=== PATIENT | female | born 1965 | race Caucasian/White ===

== ENCOUNTER → 2020-03-03 17:40 | Outpatient (CLI) | payer OTHER, SELFPAY ==
[2020-03-03 19:34] LABS: Alanine Aminotransferase 35 U/L (12-78); Albumin Level 4.1 g/dl (3.5-5.0); Albumin/Globulin Ratio 1.4 (1.1-1.8); Alkaline Phosphatase 92 U/L (38-126); Anion Gap 17.9 mEq/L (5-15); Aspartate Amino Transferase 33 U/L (14-36); Bilirubin,Total 0.6 mg/dl (0.2-1.3); Blood Urea Nitrogen 15 mg/dl (7-17); Calcium 8.8 mg/dl (8.4-10.2); Carbon Dioxide 26 mmol/L (22.0-30.0); Chloride 95 mmol/L (98-107); Estimated Glomerular Filt Rate 231 ml/min (>60); GFR (African American) 279 ML/MIN (>60); Glucose 296 mg/dl (74-100); Potassium 3.9 mmoL/L (3.5-5.1); Sodium 135 mmol/L (136-145); Total Protein,Serum 7.1 g/dl (6.3-8.2)
== END ==
PROVIDERS: Visit Provider Family Medicine
DX: I10 Essential (primary) hypertension (principal)
CPT/HCPCS: 80053

== ENCOUNTER → 2023-02-02 09:04 | Outpatient (CLI) | payer BC, SELFPAY ==
[2023-02-02 19:22] LABS: Basophils % 0.7 % (0.1-2.0); Eosinophils # 0.3 K/mm3 (0.0-0.4); Eosinophils % 5.3 % (0.1-12.0); Hematocrit 41.9 % (37.0-47.0); Hemoglobin 13.3 g/dL (12.2-16.2); Lymphocytes # 1.8 K/mm3 (0.7-4.5); Lymphocytes % 34.9 % (10-50); Mean Corpuscular HGB Conc 31.9 g/dL (31.8-35.4); Mean Corpuscular Hemoglobin 27.2 pg (27.0-31.2); Mean Corpuscular Volume 85.5 fl (81-99); Mean Platelet Volume 10.6 fl (7.4-10.4); Monocytes # 0.3 K/mm3 (0.1-1.0); Monocytes % 5.9 % (1.7-9.3); Neutrophils # 2.7 K/mm3 (1.8-7.8); Neutrophils % 53.2 % (37.0-80.0); Platelet Count 187 K/mm3 (142-424); Red Cell Distribution Width 14.4 % (11.5-17.5); White Blood Count 5.2 K/mm3 (4.8-10.8)
[2023-02-02 19:26] LABS: Alanine Aminotransferase 31 U/L (12-78); Albumin Level 3.9 g/dl (3.5-5.0); Albumin/Globulin Ratio 1.4 (1.1-1.8); Alkaline Phosphatase 65 U/L (38-126); Anion Gap 10.8 mEq/L (5-15); Aspartate Amino Transferase 36 U/L (14-36); Bilirubin,Total 0.4 mg/dl (0.2-1.3); Blood Urea Nitrogen 17 mg/dl (7-17); Calcium 8.7 mg/dl (8.4-10.2); Carbon Dioxide 31 mmol/L (22.0-30.0); Chloride 103 mmol/L (98-107); Cholesterol 143 mg/dl (140-200); Estimated Glomerular Filt Rate 127 ml/min (>60); GFR (African American) 153 ML/MIN (>60); Globulin 2.8 g/dL (1.3-3.2); Glucose 92 mg/dl (74-100); HDL Cholesterol 47 mg/dl (40-60); Potassium 3.8 mmoL/L (3.5-5.1); Sodium 141 mmol/L (136-145); Total Protein,Serum 6.7 g/dl (6.3-8.2); Triglycerides 140 mg/dl (30-150); VLDL Cholesterol 28 mg/dL (0-40)
[2023-02-02 19:37] LABS: Direct LDL Cholesterol 65.81 mg/dL (100-129)
[2023-02-02 19:44] LABS: Hemoglobin A1C 6.1 % (4.0-6.0)
== END ==
PROVIDERS: PCP Family Medicine; Visit Provider Family Medicine
DX: Z00.00 Encounter for general adult medical examination without abnormal findings (principal); E03.8 Other specified hypothyroidism; E11.9 Type 2 diabetes mellitus without complications; E66.9 Obesity, unspecified; Z68.41 Body mass index [BMI] 40.0-44.9, adult; Z79.84 Long term (current) use of oral hypoglycemic drugs; Z79.899 Other long term (current) drug therapy
CPT/HCPCS: 80053; 80061; 83036; 84443; 85025

== ENCOUNTER 2024-02-15 13:43 | Outpatient (CLI) | payer BC, SELFPAY ==
[2024-02-15 18:54] LABS: Basophils # 0.1 K/mm3 (0-0.2); Basophils % 1.2 % (0.1-2.0); Eosinophils # 0.2 K/mm3 (0.0-0.4); Eosinophils % 3.9 % (0.1-12.0); Hematocrit 44.1 % (37.0-47.0); Hemoglobin 14.4 g/dL (12.2-16.2); Lymphocytes # 1.5 K/mm3 (0.7-4.5); Lymphocytes % 30.8 % (10-50); Mean Corpuscular HGB Conc 32.7 g/dL (31.8-35.4); Mean Corpuscular Hemoglobin 29.7 pg (27.0-31.2); Mean Corpuscular Volume 90.8 fl (81-99); Monocytes # 0.3 K/mm3 (0.1-1.0); Monocytes % 6.2 % (1.7-9.3); Neutrophils # 2.8 K/mm3 (1.8-7.8); Platelet Count 196 K/mm3 (142-424); Red Blood Count 4.86 M/mm3 (4.20-5.40); Red Cell Distribution Width 14.3 % (11.5-17.5); White Blood Count 4.8 K/mm3 (4.8-10.8)
[2024-02-15 19:12] LABS: Alanine Aminotransferase 28 U/L (12-78); Albumin Level 3.8 g/dl (3.5-5.0); Albumin/Globulin Ratio 1.4 (1.1-1.8); Alkaline Phosphatase 54 U/L (38-126); Anion Gap 8.9 mEq/L (5-15); Aspartate Amino Transferase 32 U/L (14-36); Bilirubin,Total 0.6 mg/dl (0.2-1.3); Blood Urea Nitrogen 20 mg/dl (7-17); Calcium 9.5 mg/dl (8.4-10.2); Carbon Dioxide 30 mmol/L (22.0-30.0); Chloride 104 mmol/L (98-107); Chol/HDL Ratio 4.9 (1-3.5); Cholesterol 183 mg/dl (140-200); Estimated Glomerular Filt Rate 126 ml/min (>60); GFR (African American) 153 ML/MIN (>60); Globulin 2.8 g/dL (1.3-3.2); Glucose 82 mg/dl (74-100); HDL Cholesterol 37 mg/dl (40-60); Potassium 3.9 mmoL/L (3.5-5.1); Sodium 139 mmol/L (136-145); Total Protein,Serum 6.6 g/dl (6.3-8.2); Triglycerides 213 mg/dl (30-150); VLDL Cholesterol 43 mg/dL (0-40)
[2024-02-15 19:22] LABS: Direct LDL Cholesterol 84.69 mg/dL (100-129)
[2024-02-15 19:44] LABS: Thyroid Stimulating Hormone 0.85 uIU/mL (0.465-4.68)
[2024-02-15 20:01] LABS: Hemoglobin A1C 5.5 % (4.0-6.0)
== END 2024-02-15 23:59 | disposition home or self-care (01) ==
LOC: LAB.DROPOF 02-16 13:44
PROVIDERS: PCP Family Medicine; Visit Provider Family Medicine
DX: E11.9 Type 2 diabetes mellitus without complications (principal)
CPT/HCPCS: 80050; 80053; 80061; 83036; 84443; 85025

== ENCOUNTER 2025-02-24 10:00 | Outpatient (CLI) | payer BC, SELFPAY ==
[2025-02-24 16:06] LABS: Albumin Level 3.6 g/dl (3.5-5.0); Chloride 98 mmol/L (98-107); Sodium 136 mmol/L (136-145)
[2025-02-24 16:07] LABS: Potassium 3.5 mmoL/L (3.5-5.1)
[2025-02-24 16:09] LABS: Alanine Aminotransferase 26 U/L (12-78); Albumin/Globulin Ratio 1.0 (1.1-1.8); Alkaline Phosphatase 76 U/L (38-126); Anion Gap 10.5 mEq/L (5-15); Aspartate Amino Transferase 31 U/L (14-36); Bilirubin,Total 0.4 mg/dl (0.2-1.3); Blood Urea Nitrogen 21 mg/dl (7-17); Carbon Dioxide 31 mmol/L (22.0-30.0); Cholesterol 153 mg/dl (140-200); Creatinine,Serum 0.50 mg/dl (0.52-1.04); Estimated Glomerular Filt Rate 126 ml/min (>60); GFR (African American) 152 ML/MIN (>60); Globulin 3.5 g/dL (1.3-3.2); Total Protein,Serum 7.1 g/dl (6.3-8.2); Triglycerides 165 mg/dl (30-150)
[2025-02-24 16:10] LABS: Calcium 9.3 mg/dl (8.4-10.2); Glucose 98 mg/dl (74-100); HDL Cholesterol 40 mg/dl (40-60)
[2025-02-24 16:58] LABS: Hepatitis C Ab Qual. W/ RFX NEGATIVE (Negative)
[2025-02-24 17:02] LABS: Thyroid Stimulating Hormone 0.83 uIU/mL (0.465-4.68)
[2025-02-25 05:33] LABS: Hepatitis B Surface Antigen Negative (Negative)
--- OUTSIDE RECORDS SUMMARY | 2025-02-25 15:41 | XMS_ITS | Encounter Summary ---
Author Organization [place] [address] Care Team Providers Care Head Of English Name Role Phone Twila Joseph MD Unavailable Twila Joseph MD Primary Care Provider [phone] Royal Sharma MD Primary Care Provider Reason for Visit * Reason Comments Medication Refill Encounter Details Date Type Department Care Team (Late st Contact Info) Description 03/28/2018 Refill SEP [facility] [address] [place] [address] Twila Joseph MD [address] [place] [address] Medication Refill Social History Tobacco Use Types Packs/Day Years Used Date Smoking Tobacco: Never Smokeless Tobacco: Never Alcohol Use Standard Drinks/Week Comments No 0 (1 standard drink = 0.6 oz pur e alcohol) Comments No Sex and Gender Information Value Date Recorded Sex Assigned at Not on file Legal Sex Female 3:50 PM EDT Gender Identity Not on file Sexual Orientation Not on file Occupation Industry Job Start Date Job End Date retired teacher Not on file Not on file Not on file documented as of this encounter Functional Status * Is the person deaf or does he/she have serious difficulty hearing? Answer Date of Assessment Author No 06/26/2017 3:45 PM Norbert Joiner CCMA * Is the person blind or does he/she have serious difficulty seeing even when wearing glasses? Answer Date of Assessment Author No 06/26/2017 3:45 PM GRAHAM ArangotraviscaliNorbert CCMA * Does this person have serious difficulty walking or climbing stairs? Answer Date of Assessment Author No 06/26/2017 3:45 PM GRAHAM Yu Norbert Bauer CCMJohnny * Does this person have difficulty dressing or bathing? Answer Date of Assessment Author No 06/26/2017 3:45 PM GRAHAM YuNorbert CCMJohnny * Because of a physical, mental or emotional condition, does this person have difficulty doing errands alone such as visiting a doctor's office or shopping? Answer Date of Assessment Author No 06/26/2017 3:45 PM GRAHAM YuNorbert CCMA documented as of this encounter Mental Status * Because of a physical, mental or emotional condition, does this person have serious difficulty concentrating, remembering or making decisions? Answer Entry Date Author No 06/26/2017 3:45 PM GRAHAM ConchitaNorbert alberto CCMA documented in this encounter Miscellaneous Notes * Telephone Encounter - Nisreen Pang - 03/28/2018 8:28 AM EDT lmtcb * Telephone Encounter - Yolanda Bangura RMA - 03/28/2018 7:52 AM EDT NEEDS APPT/FASTING LABS documented in this encounter Plan of Treatment Upcoming Encounters Date Type Department Care Team (Late st Contact Info) Description 03/24/2025 10:15 [place] [address] Royal Sharma MD [address] [place] [address] documented as of this encounter Goals Goal Patient Goal Type Associated Problems Recent Progress Patient-Stated? Author Blood Pressure < 140/90 Blood Pressure 138/54(2023 9:16 PM EDT) No Laurie Mary RMA Maintain a healthy diet, exercise regularly and maintain an ideal body weight General No Yolanda Bangura RMA documented as of this encounter Visit Diagnoses Diagnosis Essential hypertension Unspecified essential hypertension documented in this encounter Care Teams Head Of English Relationship Specialty Start Date End Date Twila Joseph MD [address] [place] [address] PCP - General Family Medicine 11/29/11 11/14/18 Royal Sharma MD [address] [place] [address] PCP - General Family Medicine 04/02/19 Twila Joseph MD [address] [place] [address] Family Medicine 11/29/11 11/14/18 documented as of this encounter
--- OUTSIDE RECORDS SUMMARY | 2025-02-25 15:41 | XMS_ITS | Clinical Summary ---
Author Organization [facility] Address [address] [place] [address] Phone Care Team Providers Care Still Operator Brandy Name Role Phone Royal Sharma MD Primary Care Provider [phone] Allergies Active Allergy Reactions Criticality Noted Date Comments Penicillins Rash Low 10/28/2011 Medications losartan-hydrochl orothiazide (HYZAAR) 100-25 mg Oral TabletIndications :Essential hypertension Take 1 Tab by mouth daily. 90 Tab 1 7 Active Blood-Glucose Meter Misc KitIndications:Ty pe 2 diabetes mellitus without complication, without long-term current use of insulin (HCC) Test bs daily and prn. Dx. E11.9 1 Kit 7 Active Blood Sugar Diagnostic Misc StripIndications: Type 2 diabetes mellitus without complication, without long-term current use of insulin (HCC) Test BS daily and prn. Dx. E11.9 1 box 11 7 Active Lancets Misc MiscIndications:T ype 2 diabetes mellitus without complication, without long-term current use of insulin (HCC) Test bs daily and prn. Dx. E11.9 1 box 11 7 Active atorvastatin (LIPITOR) 10 mg Oral Tablet TAKE 1 TABLET BY MOUTH DAILY 30 Tab 5 8 Active metFORMIN XR (GLUCOPHAGE-XR) 500 mg Oral Tablet Sustained Release 24 hr TAKE 1 TABLET BY MOUTH DAILY WITH BREAKFAST 30 Tab 5 8 Active metoprolol (LOPRESSOR) 100 mg Oral TabletIndications :Essential hypertension TAKE 1 TABLET BY MOUTH TWICE DAILY 180 Tab 1 8 Active citalopram (CELEXA) 10 mg Oral TabletIndications :Mixed anxiety and depressive disorder TAKE 1 TABLET BY MOUTH DAILY 90 Tab 8 Active OZEMPIC 1 mg/dose (4 mg/3 mL) SubQ Pen Injector 4 Active atorvastatin (LIPITOR) 40 mg Oral Tablet Take 40 mg by mouth daily. 4 Active meloxicam (MOBIC) 15 mg Oral TabletIndications :Closed nondisplaced fracture of base of fourth metacarpal bone of left hand with routine healing, subsequent encounter TAKE 1 TABLET BY MOUTH DAILY 30 Tablet 4 Active meloxicam (MOBIC) 15 mg Oral TabletIndications :Other closed extra-articular fracture of distal end of right radius, initial encounter Take 1 Tablet by mouth daily as needed for Pain for up to 30 doses. 30 Tablet 5 Active Active Problems Problem Noted Date Diagnosed Date Other hyperlipidemia 06/26/2017 Essential hypertension 06/30/2016 Anemia 11/29/2011 Mixed anxiety and depressive disorder 10/28/2011 Resolved Problems Problem Noted Date Diagnosed Date Resolved Date HTN (hypertension) 11/29/2011 5 Encounters Date Type Department Care Team Description 12/18/2024 10:15 AM EDT Ancillary Procedure [facility] [address] [address] Prosper Young MD Right wrist pain 12/18/2024 10:00 AM EDT Office Visit [facility] [address] [address] Prosper Young MD Other closed extra-articular fracture of distal end of right radius, initial encounter (Primary Dx); Right wrist pain 12/10/2024 5:15 PM EDT Ancillary Procedure [place] [id number] Kamran Aguilar APRN Right wrist pain 12/10/2024 5:00 PM EDT Office Visit [facility] [place] [address] Kamran Aguilar APRN Sprain of right wrist, initial encounter (Primary Dx); Right wrist pain from Last 3 Months Immunizations Immunization Administration Dates Next Due Hepatitis A, Unspecified Formulation 05/25/2012, 10/28/2011 Influenza Vaccine Quadrivalent 07/02/2015 MMR 10/28/2011 Tdap 10/28/2011 Typhoid, Unspecified Formulation 10/28/2011 Surgical History Surgery Date Site/Laterality Comments TONSILLECTOMY SECTION 1990 DILATION AND CURETTAGE OF UTERUS 11/15/2011 Vagina /N/A DILATION & CURETTAGE HYSTEROSCOPY Attempted ENDOMETRIAL ABLATION WITH NOVASURE,attempted endometrial ablation with thermachoice; Surgeon: Michelle Martinez MD; Location: [facility]; Service: Gynecology HYSTERECTOMY 01/17/2012 N/A DAVINCI ROBOTIC ASSISTED LAPAROSCOPIC HYSTERECTOMY ; Surgeon: Michelle Martinez MD; Location: [facility]; Service: Gynecology Medical devices from this surgery are in the Medical Devices section. 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 Family History Medical History Relation Name Comments Hypertension Father Osteoarthritis Father Other Father fibromyalgia/pu lm htn/PE, DVT Hypertension Maternal Grandfather Hypertension Maternal Grandmother Hypertension Mother Hypertension Paternal Grandfather Diabetes Paternal Grandmother Hypertension Paternal Grandmother Relation Name Status Comments Father Alive Maternal Grandfather Maternal Grandmother Mother Alive Paternal Grandfather Paternal Grandmother Social History Tobacco Use Types Packs/Day Years [...] file Not on file Not on file Obstetrics History Last Filed Vital Signs Vital Sign Reading Time Taken Comments Blood Pressure 138/54 12/25/2023 9:16 PM EDT Pulse 83 12/25/2023 9:16 PM EDT Temperature 36.5 C (97.7 F) 12/25/2023 9:16 PM EDT Respiratory Rate 20 12/25/2023 9:16 PM EDT Oxygen Saturation 100% 12/25/2023 9:16 PM EDT Inhaled Oxygen Concentration - - Weight 120.8 kg (266 lb 6.4 oz) 12/25/2023 9:16 PM EDT Height 160 cm (5' 3 ) 12/25/2023 9:16 PM EDT Body Mass Index 47.19 12/25/2023 9:16 PM EDT Plan of Treatment Upcoming Encounters Date Type Department Care Team (Late st Contact Info) Description 03/24/2025 10:15 AM EDT Appointment [facility] Mammography [address] [place] [address] Royal Sharma MD [address] [place] [address] Health Maintenance Due Date Last Done Comments Diabetic Eye Exam 1982 Hepatitis C Screening 1982 Cologuard 2009 FIT 2009 Sigmoidoscopy 2009 Virtual Colonography 2009 Pneumococcal Vaccine 50+ (1 of 1 - PCV) 2014 Zoster (1 of 2) 2014 Annual Wellness Exam 06/30/2017 06/30/2016 (Postponed), 11/03/2014 (Postponed) Kidney Health: uACR 12/17/2021 12/17/2020 Hemoglobin A1c 03/31/2023 09/28/2022, 03/01, 10/29/2021, Additional history exists Kidney Health: eGFR 09/29/2023 09/28/2022, 03/21/2022, 10/29/2021, Additional history exists Lipids 09/29/2023 09/28/2022, 03/01, 10/29/2021, Additional history exists COVID-19 Vaccine ( season) 2024 11/25/2020, 10/28/2020 RSV or 60+ (1 - Risk 60-74 years 1-dose series) 2024 Breast Cancer Screening 10/19/2024 10/20/19 23, 05/25/2021, 04/28/2020, Additional history exists Colon Cancer Screening 11/03/2024 Colonoscopy 11/03/2024 11/03/2014 (Postponed) Influenza Vaccine (#1) 2025 7 (Declined), 06/30/2016 (Declined), 07/02/2015, Additional history exists DTaP/TDaP/Td (3 - Td or Tdap) 03/22/2032 03/22/2022, 10/28/2011 Hepatitis B Vaccine Aged Out No longe r eligible based on patient's age to complete this topic Meningococcal B Vaccine Aged Out No l onger eligible based on patient's age to complete this topic Goals Goal Patient Goal Type Associated Problems Recent Progress Patient-Stated? Author Blood Pressure < 140/90 Blood Pressure 138/54(2023 9:16 PM EDT) No Laurie Mary RMA Maintain a healthy diet, exercise regularly and maintain an ideal body weight General No Yolanda Bangura RMA Medical Devices Implanted Type Area [place] Clerk Device Identifier Shelf Expiration Date Model / Serial / Lot Interceed Adhesive Barrier 3 X 4 - [id number] Implanted:Qty : 1 on 01/17/2012 by Michelle Martinez MD at [facility] N/A: Peritoneum J&J:ETHICON:OBDULIO ALLRED 01/29/2016 [id number] / / [id number] Procedures Procedure Name Priority Date/Time Associated Diagnosis Comments XR WRIST RIGHT PA LATERAL AND OBLIQUE Routine 12/18/2024 10:08 AM EDT Right wrist pain XR WRIST RIGHT PA LATERAL AND OBLIQUE Routine 12/10/2024 5:43 PM EDT Right wrist pain CAST APPLICATION Routine 12/10/2024 5:00 PM EDT Sprain of right wrist, initial encounter MM MAMMO DIGITAL PATRICIA SCREEN BILAT Routine 10/19/2022 11:20 AM EDT Visit for screening mammogram COMPREHENSIVE METABOLIC PANEL Routine 09/28/2022 10:35 AM EST Essential hypertension, malignant LIPID SCREEN Routine 09/28/2022 10:35 AM EST Essential hypertension, malignant HEMOGLOBIN A1C Routine 09/28/2022 10:35 AM EST Diabetes mellitus due to underlying condition with hyperosmolarity without coma, without long-term current use of insulin (HCC) Essential hypertension, malignant Class 2 severe obesity due to excess calories with serious comorbidity in adult, unspecified BMI (HCC) MICROALBUMIN/CREATINI NE RATIO URINE Routine 12/17/2020 7:55 AM EDT Type 2 diabetes mellitus with hyperosmolarity without coma, without long-term current use of insulin (HCC) from Last 3 Months or Most Recently Relevant to Health Maintenance Results * XR WRIST RIGHT PA LATERAL AND OBLIQUE (12/18/2024 10:08 AM EDT) Only the most recent of2 resultswithin the time period is included. Narrative Dallin Dorman - 12/18/2024 10:08 AM EDT Please see physician's note from office encounter for x-ray imaging result us Prosper Young MD IMG DIAGNOSTIC IMAGING ORDERAB LES Final Result * splint application (12/10/2024 5:00 PM EDT) Narrative [facility] - 12/10/2024 5:00 PM EDT Alis Mccabe MA 12/11/2024 6:28 AM Splint application Date/Time: 12/10/2024 5:00 PM Performed by: Alis Mccabe MA Authorized by: Kamran Aguilar APRN Consent given by: patient Site marked: site marked Timeout: Immediately prior to procedure a time out was called to verify the correct patient, procedure, equipment, youth accommodation support worker and site/side marked as required Injury Location details: right wrist Pre-procedure assessment neurovascularly intact Range of motion: reduced Procedure Manipulation performed? no manipulation performed Immobilization: splint Supplies used: cotton padding, elastic bandage and Ortho-Glass Post-procedure assessment neurovascularly intact Range of motion: unchanged Patient tolerance: patient tolerated the procedure well with no immediate complications Comments Patient was placed in a right thumb spica splint applied with 3-inch stockinet, 2-inch padding x 1 roll, 3x12 splint Ortho-Glass cut to length, and 2-inch elastic bandage x 1 roll. minimal swelling during splint application. Patient was able to tolerate well. Patient/family educated on splint care. Kamran Aguilar ROSETTA PROCEDURE/MINOR SURGICAL ORDER IRA Final Result [facility] * MM MAMMO DIGITAL PATRICIA SCREEN BILAT (10/19/2022 11:20 AM EDT) Anatomical Region Laterality Modality Breast Bilateral Mammography 10/19/2022 12:3 6 PM EDT Impressions 10/19/2022 12:36 PM EDT Negative ([id number]) ~ RECOMMENDATION: Routine screening mammogram in 1 year. ~ DISCLAIMER * Any patient with a palpable abnormality, unexplained by breast imaging, should be managed on clinical basis by the attending physician. * Breast imaging has a false negative rate of 15%. * The patient was notified by mail of the results of this examination. *The patient's information was entered into a reminder system with a target due date for the next mammogram, in accordance with the [place] [employer] and the Society of Breast Imaging recommendations. Narrative 10/19/2022 12:36 PM EDT Procedure:MM MAMMO DIGITAL PATRICIA SCREEN BILAT ~ Reason for exam: screening, asymptomatic. Z12.31-Encounter for screening mammogram for malignant neoplasm of [id number] ~ MM MAMMO DIGITAL PATRICIA SCREEN BILAT Bilateral CC and MLO view(s) were taken. Technologist: Petty Duque, RT There are scattered fibroglandular densities. Prior study comparison: Compared with prior studies the most recent being 05/25/21, 04/28/20 , 04/22/2019. No mammographic evidence of malignancy. No suspicious calcifications. ~ Procedure Note Frantz Chavez, - 10/19/2022 Procedure:MM MAMMO DIGITAL PATRICIA SCREEN BILAT ~ Reason for exam: screening, asymptomatic. Z12.31-Encounter for screening mammogram for malignant neoplasm of [id number] ~ MM MAMMO DIGITAL PATRICIA SCREEN BILAT Bilateral CC and MLO view(s) were taken. Technologist: Petty Duque, RT There are scattered fibroglandular densities. Prior study comparison: Compared with prior studies the most recentbeing 05/25/21, 04/28/20 , 04/22/2019. No mammographic evidence of malignancy. No suspicious calcifications. ~ IMPRESSION: Negative ([id number]) ~ RECOMMENDATION: Routine screening mammogram in 1 year. ~ DISCLAIMER * Any patient with a palpable abnormality, unexplained by breast imaging, should be managed on clinical basis by the attending physician. * Breast imaging has a false negative rate of 15%. * The patient was notified by mail of the results of this examination. *The patient's information was entered into a reminder system with atarget due date for the next mammogram, in accordance with the [place] [employer] and the Society of Breast Imaging recommendations. Royal Sharma MD IMG MAMMOGRAPHY ORDERABLES Final Result * (ABNORMAL) HEMOGLOBIN A1C (09/28/2022 10:35 AM EST) Hgb A1C 5.8(H) 4.2 - 5.6 % 09/28/2022 4:14 PM EST [facility] Est. Avg Glucose 120 mg/dL 09/28/2022 4:14 PM EST [facility] Blood VENOUS BLOOD / Unknown Venipuncture / Unknown 09/28/2022 10:35 AM EST 09/28/2022 10:35 AM EST Narrative [facility] - 09/28/2022 4:14 PM EST REFERENCE RANGE: Normal: 4.0-5.6% Pre-diabetes: 5.7-6.4% Provisional diagnosis of diabetes: >6.4% Hgb F>10% and anything which shortens red cell survival, such as hemolytic anemia, or unstable hemoglobin variants such as HbSS, HbSC, or HbCC, will lower the HbA1c value associated with a given level of glycemic control. Royal Sharma MD CHEMISTRY ORDERABLES Final Resul t [facility] [address] [facility] , [place] [address] * (ABNORMAL) LIPID SCREEN (09/28/2022 10:35 AM EST) Cholesterol 288(H) <200 mg/dL 09/28/2022 5:30 PM EST [facility] Comment: < 200 Desirable 200 - 239 Borderline High >= 240 High Triglyceride 203(H) <150 mg/dL 09/28/2022 5:30 PM EST [facility], [facility] Comment: < 150 Normal 150 - 199 Borderline High 200 - 499 High >= 500 Very High HDL 42 >=40 mg/dL 09/28/2022 5:30 PM EST [facility] Comment: > 60 Optimal 40 - 60 Acceptable < 40 Low LDL Calculated 207(H) <100 mg/dL 09/28/2022 5:30 PM EST [facility] Comment: < 100 Optimal 100 - 129 Near or above optimal 130 - 159 Borderline High 160 - 189 High >= 190 Very High Non-HDL-C Calculated 246(H) <=129 mg/dL 09/28/2022 5:30 PM EST [facility] Comment: <130 Desirable 130-159 Above Desirable 160-189 Borderline High 190-219 High >= 220 Very High Fasting Specimen? Yes None 023 5:30 PM EST [facility] Blood VENOUS BLOOD / Unknown Venipuncture / Unknown 09/28/2022 10:35 AM EST 09/28/2022 10:35 AM EST us Royal Sharma MD CHEMISTRY ORDERABLES Final Resul t [facility], [facility] [address] [facility] , [address] [place] [id number] [facility] [address], [place] [id number] * (ABNORMAL) COMPREHENSIVE METABOLIC PANEL (09/28/2022 10:35 AM EST) Pathologist [facility] Sodium 142 136 - 145 mmol/L 09/28/2022 5:30 PM EST [facility], [facility] Potassium 4.0 3.5 - 5.0 mmol/L 09/28/2022 5:30 PM EST [facility], [facility] Chloride 104 98 - 107 mmol/L 09/28/2022 5:30 PM EST [facility] Total CO2 30(H) 22 - 29 mmol/L 09/28/2022 5:30 PM EST [facility] Anion Gap 8 7 - 16 mmol/L 09/28/2022 5:30 PM EST [facility] Calcium 9.4 8.6 - 10.4 mg/dL 09/28/2022 5:30 PM EST [facility] Glucose Lvl 120(H) 74 - 100 mg/dL 09/28/2022 5:30 PM EST [facility] BUN 16 6 - 20 mg/dL 09/28/2022 5:30 PM EST [facility] Creatinine 0.56 0.51 - 1.30 mg/dL 09/28/2022 5:30 PM EST [facility] Albumin 4.1 3.5 - 5.2 gm/dL 09/28/2022 5:30 PM EST [facility] Total Protein 7.2 6.4 - 8.3 gm/dL 09/28/2022 5:30 PM EST [facility] Bili Total 0.4 0.1 - 1.3 mg/dL 09/28/2022 5:30 PM EST [facility] ALT 20 <=41 U/L 09/28/2022 5:30 PM EST [facility] AST 19 <=40 U/L 09/28/2022 5:30 PM EST [facility] Alk Phos 49 36 - 123 U/L 09/28/2022 5:30 PM EST [facility] eGFR (CKD-EPIcr 2020) 105 >=60 mL/min/1.7 3 m2 09/28/2022 5:30 PM EST [facility] Comment:Estimated GFR was ca lculated using the CKD-EPIcr (2020) equation refit without race. The equation is recommended by the National Kidney Foundation - [place] [employer] Neph[employer] Task Force. Blood VENOUS BLOOD / Unknown Venipuncture / Unknown 09/28/2022 10:35 AM EST 09/28/2022 10:35 AM EST us Royal Sharma MD CHEMISTRY ORDERABLES Final Resul t [facility] [address] [facility] [address] [place] [address] [facility] [address] [place] [address] * MICROALBUMIN/CREATININE RATIO URINE (12/17/2020 7:55 AM EDT) Urine Microalb 19.4 mg/L 12/17/2020 5:03 PM EDT [facility] Urine Creatinine 111.6 mg/dL 12/17/2020 5:03 PM EDT [facility] Ur Microalb/Creat 17 0 - 30 mg/g 12/17/2020 5:03 PM EDT [facility] STRUCTURE OF URINARY TRACT PROPER / Unknown 12/17/2020 7:55 AM EDT 12/17/2020 7:55 AM EDT Royal Sharma MD URINE ORDERABLES Final Result Performing Organization Address City/[facility] Co de Phone Number [facility], [facility] [address] [facility] [address] [place] [address] from Last 3 Months or Most Recently Relevant to Health Maintenance Insurance [address] [place], [place] [address] ANTHEM PPO ANTHEM PPO Advance Directives For more information, please contact: [phone] * Full Code (Latest Code Status on File) Date Activated Date Inactivated Comments 01/17/2012 8:41 PM 01/18/2012 11:32 PM Care Teams Still Operator Brandy Relationship Specialty Start Date End Date Royal Sharma MD PCP - General Family Medicine 04/02/19
--- OUTSIDE RECORDS SUMMARY | 2025-02-25 15:43 | XMS_ITS | Encounter Summary ---
Author Organization [place] [address] Care Team Providers Care Grease Buffer Name Role Phone Twila Joseph MD Unavailable [phone] Twila Joseph MD Primary Care Provider [phone] Royal Sharma MD Primary Care Provider [phone] Reason for Visit * Reason Comments Medication Refill Encounter Details Date Type Department Care Team (Late st Contact Info) Description 04/19/2018 Refill SEP [facility] [address] [place] [address] Twila Joseph MD [address] [place] [address] Medication Refill Social History Tobacco [...] * Telephone Encounter - Nisreen Pang - 04/20/2018 10:02 AM EDT lmtcb * Telephone Encounter - Yolanda Bangura RMA - 04/20/2018 7:45 AM EDT NEEDS APPT/FASTING LABS documented in this encounter Plan of Treatment Upcoming Encounters Date Type Department Care Team (Late st Contact Info) Description 03/24/2025 10:15 [place] [address] Royal Sharma MD [address] [place] [address] documented as of this encounter Goals Goal Patient Goal Type Associated Problems Recent Progress Patient-Stated? Author Blood Pressure < 140/90 Blood Pressure 138/54(2023 9:16 PM EDT) No Laurie Mary RMA Maintain a healthy diet, exercise regularly and maintain an ideal body weight General No Yolanda Bangura RMA documented as of this encounter Visit Diagnoses Not on filedocumented in this encounter Care Teams Grease Buffer Relationship Specialty Start Date End Date Twila Joseph MD [address] [place] [address] PCP - General Family Medicine 11/29/11 11/14/18 Royal Sharma MD [address] [place] [address] PCP - General Family Medicine 04/02/19 Twila Joseph MD [address] [place] [address] Family Medicine 11/29/11 11/14/18 documented as of this encounter
== END 2025-02-24 23:59 | disposition home or self-care (01) ==
LOC: LAB.DROPOF 02-25 15:39
PROVIDERS: PCP Family Medicine; Visit Provider Family Medicine
DX: E11.9 Type 2 diabetes mellitus without complications (principal); E03.8 Other specified hypothyroidism; I10 Essential (primary) hypertension; Z11.59 Encounter for screening for other viral diseases; E66.01 Morbid (severe) obesity due to excess calories; Z68.41 Body mass index [BMI] 40.0-44.9, adult
CPT/HCPCS: 80053; 80061; 80074; 82043; 82570; 84443; 87340; 87389